=== PATIENT | female | born 1965 | race Two or more races ===

== ENCOUNTER → 2017-07-21 | Outpatient (CLI) | payer OTHER ==
[~2017-07-21] MED LIST: ANAPROX275 MG PO; CEFTIN250 MG PO; CELEBREX100 MG PO; DIAZEPAM2 MG PO; KETO10TA2 PO; LOPRESSOR25 MG; SKELAXIN800 MG PO; SYNTHROID75 MCG
== END | disposition home or self-care (01) ==
LOC: RAD 10:56
DX: M12.9 Arthropathy, unspecified (principal); M19.90 Unspecified osteoarthritis, unspecified site; M46.47 Discitis, unspecified, lumbosacral region

== ENCOUNTER 2018-04-17 10:41 | Outpatient (CLI) | payer OTHER | END 2018-04-17 11:23 | disposition home or self-care (01) | LOC: MRI 10:41 | DX: Z12.31 Encounter for screening mammogram for malignant neoplasm of breast (principal); N63.11 Unspecified lump in the right breast, upper outer quadrant; C73 Malignant neoplasm of thyroid gland; E03.8 Other specified hypothyroidism; M54.12 Radiculopathy, cervical region | CPT/HCPCS: 72141 ==

== ENCOUNTER 2019-05-14 06:13 | Outpatient (CLI) | payer OTHER | END 2019-05-14 06:24 | disposition home or self-care (01) | LOC: LAB 06:13 | DX: E89.0 Postprocedural hypothyroidism (principal); E11.9 Type 2 diabetes mellitus without complications; M81.0 Age-related osteoporosis without current pathological fracture; C73 Malignant neoplasm of thyroid gland ==

== ENCOUNTER 2019-05-14 07:43 | Outpatient (CLI) | payer OTHER | END 2019-05-14 07:51 | disposition home or self-care (01) | LOC: MAMO-SONO 07:43 | DX: Z12.31 Encounter for screening mammogram for malignant neoplasm of breast (principal); Z87.898 Personal history of other specified conditions; D24.1 Benign neoplasm of right breast; C73 Malignant neoplasm of thyroid gland ==

== ENCOUNTER → 2019-08-01 06:35 | Outpatient (CLI) | payer OTHER | END | disposition home or self-care (01) | LOC: LAB 06:35 | DX: E11.9 Type 2 diabetes mellitus without complications (principal); E03.8 Other specified hypothyroidism; E78.2 Mixed hyperlipidemia; M81.0 Age-related osteoporosis without current pathological fracture; I10 Essential (primary) hypertension ==

== ENCOUNTER 2019-10-15 16:57 | Emergency (ER) | payer OTHER ==
[~2019-10-15] VITALS: Ht 162.6 cm; Wt 102.1 kg
[2019-10-15] MEDS ORDERED: PANTOPRAZOLE SO40 MG (17:11)
[2019-10-15] MEDS ORDERED: ROCALTROL0.25 MCG (17:11)
[2019-10-15] MEDS ORDERED: ASA81 MG (17:11)
[2019-10-15] MEDS ORDERED: OS-CAL 500-VIT1 EACH (17:11)
[2019-10-15] MEDS ORDERED: SIMVASTATIN80 MG (17:11)
[2019-10-15] MEDS ORDERED: SYNTHROID112 MCG (17:12)
== END 2019-10-15 18:04 | disposition home or self-care (01) ==
LOC: ER 16:57
DX: M54.5 Low back pain (principal)

== ENCOUNTER 2020-06-11 13:03 | Outpatient (CLI) | payer OTHER ==
[~2020-06-11 13:03] MED LIST changes: +ASA81 MG; +OS-CAL 500-VIT1 EACH; +PANTOPRAZOLE SO40 MG; +ROCALTROL0.25 MCG; +SIMVASTATIN80 MG; +SYNTHROID112 MCG
== END 2020-06-11 13:15 | disposition home or self-care (01) ==
LOC: MAMO-SONO 13:03
PROVIDERS: ATTEND Specialist
DX: Z12.31 Encounter for screening mammogram for malignant neoplasm of breast (principal); N60.11 Diffuse cystic mastopathy of right breast; N60.12 Diffuse cystic mastopathy of left breast

== ENCOUNTER 2021-01-31 09:34 | Emergency (ER) | payer OTHER ==
[~2021-01-31] VITALS: Ht 162.6 cm; Wt 83.9 kg
[2021-01-31] MEDS ORDERED: PROTONIX40 M1 (09:56)
[2021-01-31] MEDS ORDERED: CALTRATE 600 +1 EACH (09:56)
== END 2021-01-31 15:41 ==
LOC: ER 09:34
DX: M67.824 Other specified disorders of tendon, left elbow (principal); M25.521 Pain in right elbow; Z03.818 Encounter for observation for suspected exposure to other biological agents ruled out

== ENCOUNTER → 2021-06-29 | Outpatient (CLI) | payer OTHER ==
[~2021-06-29] MED LIST changes: +CALTRATE 600 +1 EACH; +PROTONIX40 M1
== END | disposition home or self-care (01) ==
LOC: MAMO-SONO 13:00
PROVIDERS: ATTEND Specialist
DX: N60.11 Diffuse cystic mastopathy of right breast (principal); N60.12 Diffuse cystic mastopathy of left breast; C73 Malignant neoplasm of thyroid gland

== ENCOUNTER 2021-08-25 06:27 | Emergency (ER) | payer OTHER ==
[~2021-08-25] VITALS: Ht 162.6 cm; Wt 81.6 kg
== END 2021-08-25 16:10 | disposition home or self-care (01) ==
LOC: ER 06:27
DX: K29.00 Acute gastritis without bleeding (principal); R11.10 Vomiting, unspecified; Z91.09 Other allergy status, other than to drugs and biological substances; I10 Essential (primary) hypertension

== ENCOUNTER 2022-03-23 06:38 | Outpatient (CLI) | payer OTHER | END 2022-03-23 06:39 | disposition home or self-care (01) | LOC: LAB 06:38 | PROVIDERS: ATTEND Internal Medicine Sports Medicine | DX: D64.9 Anemia, unspecified (principal); E11.9 Type 2 diabetes mellitus without complications; E78.2 Mixed hyperlipidemia; I10 Essential (primary) hypertension; E03.8 Other specified hypothyroidism; E55.9 Vitamin D deficiency, unspecified; E88.81 Metabolic syndrome and other insulin resistance; E04.0 Nontoxic diffuse goiter; Z13.0 Encounter for screening for diseases of the blood and blood-forming organs and certain disorders involving the immune mechanism; E66.9 Obesity, unspecified; N39.0 Urinary tract infection, site not specified; N95.9 Unspecified menopausal and perimenopausal disorder; R94.5 Abnormal results of liver function studies; R89.1 Abnormal level of hormones in specimens from other organs, systems and tissues; M19.90 Unspecified osteoarthritis, unspecified site; E03.9 Hypothyroidism, unspecified ==

== ENCOUNTER 2022-03-23 07:27 | Outpatient (CLI) | payer OTHER | END 2022-03-23 07:29 | disposition home or self-care (01) | LOC: SONOGRAMA 07:27 | PROVIDERS: ATTEND Internal Medicine Sports Medicine | DX: C73 Malignant neoplasm of thyroid gland (principal) ==

== ENCOUNTER 2022-06-10 18:15 | Emergency (ER) | payer OTHER ==
[~2022-06-10] VITALS: Ht 162.6 cm; Wt 82.6 kg
[2022-06-10] MEDS ORDERED: AMOXICILLIN500 MG PO (18:38)
[2022-06-10] MEDS ORDERED: METRONIDAZOLE500 MG PO (18:39)
== END 2022-06-10 21:22 | disposition home or self-care (01) ==
LOC: ER 18:15
DX: M62.830 Muscle spasm of back (principal)

== ENCOUNTER 2022-07-05 12:28 | Outpatient (CLI) | payer OTHER ==
[~2022-07-05 12:28] MED LIST changes: +AMOXICILLIN500 MG PO; +METRONIDAZOLE500 MG PO
== END 2022-07-05 12:40 | disposition home or self-care (01) ==
LOC: MAMO-SONO 12:28
PROVIDERS: ATTEND Specialist
DX: N60.11 Diffuse cystic mastopathy of right breast (principal); N60.12 Diffuse cystic mastopathy of left breast

== ENCOUNTER 2022-08-26 15:00 | Outpatient (CLI) | payer OTHER | END 2022-08-26 15:06 | disposition home or self-care (01) | LOC: MRI 15:00 | PROVIDERS: ATTEND Psychiatry & Neurology Neurology | DX: M54.12 Radiculopathy, cervical region (principal) | CPT/HCPCS: 72141 ==

== ENCOUNTER 2022-09-04 10:49 | Outpatient (CLI) | payer OTHER | END 2022-09-04 10:51 | disposition home or self-care (01) | LOC: LAB 10:49 | PROVIDERS: ATTEND Internal Medicine Gastroenterology | DX: R19.7 Diarrhea, unspecified (principal) ==

== ENCOUNTER 2022-09-19 14:10 | Emergency (ER) | payer OTHER ==
[~2022-09-19] VITALS: Ht 162.6 cm; Wt 84.4 kg
== END 2022-09-19 22:19 | disposition home or self-care (01) ==
LOC: ER 14:10
DX: N93.8 Other specified abnormal uterine and vaginal bleeding (principal); R10.2 Pelvic and perineal pain; Z88.1 Allergy status to other antibiotic agents

== ENCOUNTER 2022-11-30 10:27 | Outpatient (CLI) | payer OTHER | END 2022-11-30 10:47 | disposition home or self-care (01) | LOC: MRI 10:27 | DX: G24.8 Other dystonia (principal); R35.1 Nocturia; G47.62 Sleep related leg cramps | CPT/HCPCS: 72148 ==

== ENCOUNTER 2023-07-04 10:50 | Outpatient (CLI) | payer OTHER | END 2023-07-04 10:59 | disposition home or self-care (01) | LOC: MAMO-SONO 10:50 | PROVIDERS: ATTEND Specialist | DX: D24.1 Benign neoplasm of right breast (principal) ==

== ENCOUNTER 2023-09-27 13:11 | Outpatient (CLI) | payer OTHER | END 2023-09-27 13:18 | disposition home or self-care (01) | LOC: MRI 13:11 | PROVIDERS: ATTEND Physical Medicine & Rehabilitation | DX: M54.50 Low back pain, unspecified (principal); M54.16 Radiculopathy, lumbar region | CPT/HCPCS: 72148 ==

== ENCOUNTER 2024-09-08 07:34 | Outpatient (CLI) | payer OTHER ==
[2024-09-08 09:28] LABS: HEMOGLOBIN 13.5 g/dL (12.0-15.00); MEAN CELL VOLUME 82.9 fL (80.00-100.00); MEAN CORPUSCULAR HEMOGLOBIN 27.3 pg (27.00-32.0); MEAN CORPUSCULAR HGB CONC 32.9 g/dl (32.0-36.0); PLATELET COUNT 248 K/uL (150-450); RED BLOOD COUNT 4.95 M/uL (4.00-6.00); RED CELL DISTRIBUTION WIDTH 14.8 % (11.5-14.5)
[2024-09-08 09:31] LABS: PH,URINE 8.5 (5.0-8.0); URINE APPEARANCE Turbid; URINE BILIRRUBIN Negative (NEGATIVE); URINE BLOOD Negative; URINE COLOR Yellow; URINE GLUCOSE Negative (NEGATIVE); URINE KETONE Negative (NEGATIVE); URINE LEUKOCYTE Negative; URINE NITRATE Negative; URINE PROTEIN Negative (NEGATIVE); URINE UROBILINOGEN 0.2 E.U./dl
[2024-09-08 09:35] LABS: URINE BACTERIA 124.7 uL (0.0-1933); URINE EPITHELIAL CELLS 3.9 uL (0.0-38.8); URINE RBC 23.7 uL (0.0-20.8)
[2024-09-08 10:11] LABS: URINE CAST 0.14 uL (0.0-1.40); URINE WBC 0.4 uL (0.0-23.2)
[2024-09-08 10:31] LABS: ALBUMIN 3.8 gm/dL (3.4-5.0); BILIRUBIN TOTAL 0.45 mg/dL (0.3-1.2); CALCIUM 8.4 mg/dL (8.5-10.1); CHOL HDL RATIO 2.4 (0-5.0); CREATININE SERUM 0.62 mg/dL (0.55-1.02); GFR 98.52; GLOBULINA 3.2 G/DL (2.4-3.5); POTASSIUM 4.15 mEq/L (3.5-5.1); T4 FREE 1.32 NG/ML (0.76-1.46); T4 TOTAL 12.3 UG/DL (4.8-13.9)
[2024-09-08 10:49] LABS: TSH 0.268 uIU/mL (0.358-3.74)
[2024-09-10 11:59] LABS: T3 TOTAL 1.05 ng/ml (0.846-2.02); VITAMIN D3 25 HYDROXY 80.44 ng/ml (30-120)
== END 2024-09-08 07:45 | disposition home or self-care (01) ==
LOC: LAB 07:34
PROVIDERS: ATTEND Internal Medicine Cardiovascular Disease
DX: E11.9 Type 2 diabetes mellitus without complications (principal); I10 Essential (primary) hypertension; E03.9 Hypothyroidism, unspecified; E78.2 Mixed hyperlipidemia; D64.0 Hereditary sideroblastic anemia; Z12.11 Encounter for screening for malignant neoplasm of colon; E55.9 Vitamin D deficiency, unspecified; M81.0 Age-related osteoporosis without current pathological fracture

== ENCOUNTER → 2024-10-10 | Emergency (ER) | payer OTHER ==
[~2024-10-10] VITALS: Ht 162.6 cm; Wt 81.6 kg
[~2024-10-10] MED LIST changes: +NORFLEX100MG PO; +ORPHENADRINE CITRATE 30 MG/ML AMPUL IM ONE; +ORPHENADRINE CITRATE 30 MG/ML AMPUL ONE
[2024-10-10 13:35] VITALS: BP 142/82; O2SAT 100
== END | disposition home or self-care (01) ==
LOC: ER 13:15
DX: S00.93XA Contusion of unspecified part of head, initial encounter (principal); W18.39XA Other fall on same level, initial encounter; Y93.89 Activity, other specified; Y92.012 Bathroom of single-family (private) house as the place of occurrence of the external cause; Y99.9 Unspecified external cause status; M62.838 Other muscle spasm; Z88.8 Allergy status to other drugs, medicaments and biological substances

== ENCOUNTER 2024-11-16 12:54 | Outpatient (CLI) | payer OTHER ==
[~2024-11-16 12:54] MED LIST changes: -ORPHENADRINE CITRATE 30 MG/ML AMPUL IM ONE; -ORPHENADRINE CITRATE 30 MG/ML AMPUL ONE
== END 2024-11-16 13:04 | disposition home or self-care (01) ==
LOC: MAMO-SONO 12:54
PROVIDERS: ATTEND Specialist
DX: C73 Malignant neoplasm of thyroid gland (principal); D24.1 Benign neoplasm of right breast; D24.2 Benign neoplasm of left breast

== ENCOUNTER 2025-01-31 14:23 | Outpatient (CLI) | payer OTHER | END 2025-01-31 14:27 | disposition home or self-care (01) | LOC: RAD 14:23 | PROVIDERS: ATTEND Physical Medicine & Rehabilitation | DX: M54.2 Cervicalgia (principal); M54.50 Low back pain, unspecified ==